=== PATIENT | male | born 1975 | race Caucasian/White ===

== ENCOUNTER 2021-08-16 23:01 | Inpatient (IN) | payer MEDICAID ==
[~2021-08-16] VITALS: Ht 177.8 cm; Wt 106.6 kg
[2021-08-16] MEDS ORDERED: DILTIAZEM HCL 50 MG IV ONE (23:18)
[2021-08-16] MEDS ORDERED: DILTIAZEM HCL 25 MG IV ONE (23:27)
[2021-08-16] MEDS ORDERED: DILTIAZEM HCL 50 MG IV IV ONE (23:30)
--- NOTE | 2021-08-16 23:30 | NUR ---
Cardizem 10mg given IVP
--- NOTE | 2021-08-16 23:30 | NUR ---
BIBRA FROM HOME. PT A/O X3, C/O PALPITATIONS STARTED AT 2200. PT HAS HX OF AFIB DENIES CP, SOB,NAUSEA AT THIS TIME.
--- NOTE | 2021-08-16 23:44 | NUR ---
GREEN CHAIN OFF BEARER AT PT'S BEDSIDE
[2021-08-17] VITALS (18 sets, daily range): BP systolic 123–163; BP diastolic 50–111
--- NOTE | 2021-08-17 | NUR ---
Deysi al in [facility] - 08/17/21 at 0005 by NAYELI Cardizem drip started at 5 mg/hr will cont. to monitor pt.
[2021-08-17 00:06] LABS: BASOPHILS # (AUTO) 0.1 K/uL (0.0-0.2); BASOPHILS % (AUTO) 0.8 % (0.0-2.0); EOSINOPHILS % (AUTO) 1.7 % (0.0-6.0); HEMATOCRIT 48 % (39-51); HEMOGLOBIN 16.9 g/dL (13.5-17.5); LYMPHOCYTES # (AUTO) 3.1 K/uL (0.8-4.8); LYMPHOCYTES % (AUTO) 40.2 % (20.0-44.0); MEAN CORPUSCULAR HGB CONC 35 g/dl (31.0-36.0); MEAN CORPUSCULAR VOLUME 89 fL (80-96); MONOCYTES # (AUTO) 0.4 K/uL (0.1-1.30); MONOCYTES % (AUTO) 5.2 % (2.0-12.0); NEUTROPHILS % (AUTO) 52.1 % (43.0-81.0); PLATELET COUNT (AUTO) 232 K/uL (150-450); RED BLOOD CELL COUNT(AUTO) 5.39 MIL/uL (4.5-6.0); WHITE BLOOD COUNT (AUTO) 7.7 K/uL (4.3-11.0)
--- NOTE | 2021-08-17 00:10 | NUR ---
Pt HR 170 cardizem increases to 10 mg/hr. will cont. to monitor pt
--- NOTE | 2021-08-17 00:10 | NUR ---
pt HR 177 Cardizem drip increased to 10mg/hr
--- NOTE | 2021-08-17 00:20 | NUR ---
pt hr 165-170 Cardizem drip increased to 15 mg/hr.
[2021-08-17 00:41] LABS: CARBON DIOXIDE 27 mmol/L (21-32); CHLORIDE 102 mmol/L (98-107); GLUCOSE 188 mg/dL (74-106); POTASSIUM 3.6 mmol/L (3.5-5.1); SODIUM SERUM 140 mmol/L (136-145); UREA NITROGEN, BLOOD 12 mg/dL (7-18)
[2021-08-17 00:46] LABS: ALANINE AMINOTRANSFERASE 68 U/L (12-78); ALKALINE PHOSPHATASE 45 U/L (46-116); ASPARTATE AMINOTRANSFERASE 43 U/L (15-37); BILIRUBIN,TOTAL 0.3 mg/dL (0.2-1.0); TOTAL PROTEIN, SERUM 7.8 g/dL (6.4-8.2)
--- NOTE | 2021-08-17 00:46 | NUR ---
COVID SWAB COLLECTED AND SENT TO LAB
--- NOTE | 2021-08-17 00:50 | NUR ---
PER DR. ESQUIVEL VERBAL ORDER, CANCEL TROPONIN DUE AT 0039. NOTIFIED LAB [facility]
--- NOTE | 2021-08-17 00:57 | NUR ---
MOVE SHEET SUBMITTED
[2021-08-17] MEDS ORDERED: Z GUARD REMEDY 4 OZ OINT TP PRN (01:00)
[2021-08-17] MEDS: ASPIRIN 81 MG TAB.CHEW PO SCH ×2 (01:00→08:07)
[2021-08-17] MEDS ORDERED: ZOLPIDEM TARTRATE 5 MG TABLET PO PRN (01:00)
[2021-08-17] MEDS ORDERED: MAG HYDROX/AL HYDROX/SIMETH 30 ML UDC PO PRN (01:00)
[2021-08-17] MEDS ORDERED: MAGNESIUM HYDROXIDE 30 ML UDC PO PRN (01:00)
[2021-08-17] MEDS ORDERED: ACETAMINOPHEN 325 MG TABLET PO PRN (01:00)
[2021-08-17] MEDS ORDERED: MORPHINE SULFATE INJ 2 MG/ML DISP.SYRIN IV PRN (01:00)
[2021-08-17] MEDS ORDERED: HYDROCODONE/APAP 5/325MG TABLET PO PRN (01:00)
[2021-08-17] MEDS ORDERED: ONDANSETRON HCL/PF 4 MG/2 ML VIAL IVP PRN (01:00)
--- NOTE | 2021-08-17 01:14 | NUR ---
PROVIDED PT WITH URINAL; PT NOT ABLE TO URINATE AT THIS TIME. WILL F/U AND COLLECTED URINE LATER.
--- NOTE | 2021-08-17 01:50 | NUR ---
URINE COLLECTED AND SENT TO LAB
--- NOTE | 2021-08-17 03:17 | NUR ---
RN NOTES RECEIVED REPORT FROM ER NURSE JUAN
--- NOTE | 2021-08-17 03:22 | NUR ---
REPORT GIVEN TO BENJAMIN BODY ART TECHNICIAN
[2021-08-17] MEDS ORDERED: ENOXAPARIN SODIUM 40 MG/0.4 ML DISP.SYRIN SQ SCH (04:00)
--- NOTE | 2021-08-17 04:10 | NUR ---
PT TRANSPORTED VIA ACLS PROTOCOL IN STABLE CONDITION
--- NOTE | 2021-08-17 04:15 | NUR ---
RN CLOSING NOTES RECEIVED A 46 YEAR OLD MALE FROM ER. PATIENT ALERT AND ORIENTED X 4. RESPIRATORY EVEN AND UNLABORED, NO SOB NOTED, NOT IN DISTRESS, NO FACIAL GRIMACING NOTED. ON ROOM AIR. SKIN WARM AND DRY. NOTED WITH IV ACCESS AT LAC #18G AND RIGHT ARM #20G PATENT, INTACT, FLUSHED WITH NS, NO INFILTRATION NOTED. PATIENT WITH CARDIZEM DRIP @ 15MG/HR. V/S TAKEN AND RECORDED, COMPLETE BODY ASSESSMENT DONE. ALL SAFETY PRECAUTION PROVIDED. BED IN LOWEST POSITION, LOCKED AND BED ALARM ARMED. CALL LIGHT WITHIN REACH. Addendum: 08/17/21 at 0710 by BENSON VALENCIA RN RN OPENING NOTES
[2021-08-17] MEDS: DILTIAZEM HCL IV 125 MG in IV NS 0.9% 100 ML IV PRN ×2 (04:39→12:24)
[2021-08-17] MEDS ORDERED: DILTIAZEM HCL 50 MG IV ONE (04:42)
[2021-08-17] MEDS ORDERED: DILTIAZEM HCL 25 MG IV ONE (04:43)
--- NOTE | 2021-08-17 05:07 | NUR ---
RN NOTED PATIENT NOTED WITH BP-163/111, DENIES DIZZINESS OR HEADACHE. DR. ESQUIVEL MADE AWARE WITH NEW ORDER HYDRALAZINE 25MG PO Q6HRS PRN FOR SBP ABOVE 160, NOTED AND CARRIED OUT. CONTINUE TO MONITOR.
[2021-08-17] MEDS ORDERED: hydrALAZINE HCL 25 MG TABLET PO PRN (05:30)
--- NOTE | 2021-08-17 05:30 | NUR ---
RN NOTES BP RECHECKED OBTAINED 144/ 76. CONTINUE TO MONITOR
--- NOTE | 2021-08-17 07:11 | NUR ---
RN CLOSING NOTES NO SIGNIFICANT CHANGES THROUGH OUT THE SHIFT. RESPIRATORY EVEN AND UNLABORED, NO SOB NOTED, NOT IN DISTRESS, NO FACIAL GRIMACING NOTED. ON ROOM AIR. SKIN WARM AND DRY. PATIENT WITH CARDIZEM DRIP @ 15MG/HR. ALL DUE MEDS GIVEN ORDERED. ALL SAFETY PRECAUTION PROVIDED. BED IN LOWEST POSITION, LOCKED AND BED ALARM ARMED. CALL LIGHT WITHIN REACH.
[2021-08-17] MEDS ORDERED: PANTOPRAZOLE 40 MG TABLET.DR PO SCH (07:30)
--- NOTE | 2021-08-17 07:58 | NUR ---
RN NOTE PT RESTING IN BED, NOT IN DISTRESS. NO COMPLAINTS OF CHEST PAIN. TELE MONITOR READING AFIB. IV ACCESS ON LAC G18 AND RFA G20. ON CARDIZEM DRIP AT A RATE OF 15MG/HR. WILL CONTINUE TO MONITOR,
[2021-08-17] MEDS ORDERED: TADA20TA43 PO (08:07)
[2021-08-17] MEDS: METOPROLOL TARTRATE 50 MG TABLET PO SCH ×2 (14:59→18:23)
[2021-08-17] MEDS ORDERED: ENOXAPARIN SODIUM 100 MG/ML DISP.SYRIN SQ SCH (17:00)
--- NOTE | 2021-08-17 19:22 | NUR ---
RN NOTE PT LEFT UNIT AMA AROUND 1909. IN STABLE CONDITION. AMBULATORY. MD MESA MADE AWARE, AMA FORM AND BELONGINGS LIST SIGNED. Addendum: 08/17/21 at 1929 by TESFAYE KABA RN EXPLAINED TO PT THE RISK OF DOING AMA, PT VERBALIZED UNDERSTANDING AND STILL INSISTED TO PROCEED WITH AMA.
== END 2021-08-17 21:42 | disposition left against medical advice (07) | DRG 201 ==
LOC: ER 23:10 → ICU 08-17 03:29
PROVIDERS: ADMIT Student in an Organized Health Care Education/Training Program; ATTEND Nurse Practitioner Acute Care
DX: I48.91 Unspecified atrial fibrillation (principal); I21.A1 Myocardial infarction type 2; D68.59 Other primary thrombophilia; I10 Essential (primary) hypertension; E66.01 Morbid (severe) obesity due to excess calories
CPT/HCPCS: 36415; 71045-TC; 80048-TC; 80076-TC; 83880; 84484-TC; 85025-TC; 85730-TC; 87081-TC; 93307-TC; C9803; G0378; J1650; J3490; J7030

== ENCOUNTER 2021-11-10 02:16 | Emergency (ER) | payer MEDICAID ==
[~2021-11-10] VITALS: Ht 172.7 cm; Wt 95.3 kg
[~2021-11-10 02:16] MED LIST: TADA20TA43 PO
--- NOTE | 2021-11-10 02:23 | NUR ---
[id number] FROM HOME C/O CP & PALPITATIONS XFEW MINS. PATIENT ALERT AND ORIENTED X3. AMBULATORY WITH NON LABORED BREATHING IN BED 09 ON MONITOR LAC18G TELEPHONE LINEWORKER. AWAITING MD LANGFORD.
--- NOTE | 2021-11-10 02:25 | NUR ---
EMT @ BEDSIDE FOR EKG
[2021-11-10] MEDS ORDERED: DILTIAZEM HCL 50 MG IV IV ONE (02:30)
--- NOTE | 2021-11-10 02:30 | NUR ---
URINE SPECIMEN COLLECTED AND SENT TO LAB.
[2021-11-10] MEDS ORDERED: DILTIAZEM HCL 25 MG IV ONE (02:35)
[2021-11-10 02:58] LABS: BASOPHILS # (AUTO) 0.1 K/uL (0.0-0.2); BASOPHILS % (AUTO) 0.9 % (0.0-2.0); EOSINOPHILS % (AUTO) 2.6 % (0.0-6.0); HEMATOCRIT 46 % (39-51); HEMOGLOBIN 15.4 g/dL (13.5-17.5); LYMPHOCYTES # (AUTO) 4.4 K/uL (0.8-4.8); LYMPHOCYTES % (AUTO) 44.4 % (20.0-44.0); MEAN CORPUSCULAR HGB CONC 34 g/dl (31.0-36.0); MEAN CORPUSCULAR VOLUME 86 fL (80-96); MONOCYTES # (AUTO) 0.6 K/uL (0.1-1.30); MONOCYTES % (AUTO) 6.6 % (2.0-12.0); NEUTROPHILS # (AUTO) 4.5 K/uL (1.8-8.9); NEUTROPHILS % (AUTO) 45.5 % (43.0-81.0); PLATELET COUNT (AUTO) 215 K/uL (150-450); RED BLOOD CELL COUNT(AUTO) 5.29 MIL/uL (4.5-6.0); WHITE BLOOD COUNT (AUTO) 9.8 K/uL (4.3-11.0)
[2021-11-10 03:06] LABS: CALCIUM, SERUM 8.7 mg/dL (8.5-10.1); CARBON DIOXIDE 25 mmol/L (21-32); CHLORIDE 104 mmol/L (98-107); GLUCOSE 148 mg/dL (74-106); POTASSIUM 3.4 mmol/L (3.5-5.1); SODIUM SERUM 138 mmol/L (136-145); UREA NITROGEN, BLOOD 16 mg/dL (7-18)
[2021-11-10] MEDS ORDERED: METO-358 PO (04:48)
--- NOTE | 2021-11-10 05:15 | NUR ---
pt discharged in satble condition
[2021-11-10 05:16] VITALS: BP 133/97
== END 2021-11-10 05:16 | disposition home or self-care (01) ==
LOC: ER 02:19
DX: I48.20 Chronic atrial fibrillation, unspecified (principal); I10 Essential (primary) hypertension; Z95.5 Presence of coronary angioplasty implant and graft; Z60.2 Problems related to living alone; Z79.899 Other long term (current) drug therapy
CPT/HCPCS: 36415; 71045; 80048; 83880; 84484 ×2; 85025; 93005 ×2; 96374; 99285; J3490

== ENCOUNTER 2024-04-14 03:14 | Emergency (ER) | payer MEDICAID ==
[~2024-04-14] VITALS: Ht 175.3 cm; Wt 90.7 kg
[~2024-04-14 03:14] MED LIST changes: +METO-358 PO
[2024-04-14] MEDS ORDERED: DILTIAZEM HCL 25 MG IV ONE (03:23)
[2024-04-14] MEDS: DILTIAZEM HCL 50 MG IV IV ONE (03:29)
[2024-04-14 03:57] LABS: BASOPHILS % (AUTO) 0.5 % (0.0-2.0); EOSINOPHILS # (AUTO) 0.1 K/uL (0.0-0.7); EOSINOPHILS % (AUTO) 2.2 % (0.0-6.0); HEMATOCRIT 45 % (39-51); HEMOGLOBIN 15.4 g/dL (13.5-17.5); LYMPHOCYTES # (AUTO) 2.6 K/uL (0.8-4.8); LYMPHOCYTES % (AUTO) 41.9 % (20.0-44.0); MEAN CORPUSCULAR HEMOGLOBIN 30 PG (26.0-33.0); MEAN CORPUSCULAR HGB CONC 35 g/dl (31.0-36.0); MEAN CORPUSCULAR VOLUME 86 fL (80-96); MONOCYTES # (AUTO) 0.3 K/uL (0.1-1.30); NEUTROPHILS # (AUTO) 3.2 K/uL (1.8-8.9); NEUTROPHILS % (AUTO) 50.4 % (43.0-81.0); PLATELET COUNT (AUTO) 180 K/uL (150-450); RED BLOOD CELL COUNT(AUTO) 5.15 MIL/uL (4.5-6.0); WHITE BLOOD COUNT (AUTO) 6.3 K/uL (4.3-11.0)
[2024-04-14 04:45] LABS: ALANINE AMINOTRANSFERASE 40 U/L (12-78); ALBUMIN 3.9 g/dL (3.4-5.0); ALKALINE PHOSPHATASE 35 U/L (46-116); ASPARTATE AMINOTRANSFERASE 16 U/L (15-37); BILIRUBIN,DIRECT 0.1 mg/dL (0.0-0.2); BILIRUBIN,TOTAL 0.3 mg/dL (0.2-1.0); CALCIUM, SERUM 8.6 mg/dL (8.5-10.1); CARBON DIOXIDE 26 mmol/L (21-32); CHLORIDE 108 mmol/L (98-107); CREATININE 0.9 mg/dL (0.6-1.3); GLUCOSE 170 mg/dL (74-106); NT-PRO BNP 79 pg/mL (0-125); POTASSIUM 3.3 mmol/L (3.5-5.1); SODIUM SERUM 145 mmol/L (136-145); TOTAL PROTEIN, SERUM 7.2 g/dL (6.4-8.2); UREA NITROGEN, BLOOD 14 mg/dL (7-18)
[2024-04-14 05:11] VITALS: BP 133/79; TEMP 98.1; O2SAT 99
== END 2024-04-14 05:07 | disposition home or self-care (01) ==
LOC: ER 03:27
DX: I48.20 Chronic atrial fibrillation, unspecified (principal); I10 Essential (primary) hypertension; I25.2 Old myocardial infarction; Z79.899 Other long term (current) drug therapy; Z95.5 Presence of coronary angioplasty implant and graft; Z60.2 Problems related to living alone
CPT/HCPCS: 99285; 96374; 71045; 93005; 85025; 80048; 80076; 36415; 84484; 83880; J3490

== ENCOUNTER 2024-07-10 11:29 | Inpatient (IN) | payer MEDICAID ==
[~2024-07-10] VITALS: Ht 175.3 cm; Wt 103.4 kg
[2024-07-10 11:49] LABS: BASOPHILS # (AUTO) 0.1 K/uL (0.0-0.2); BASOPHILS % (AUTO) 0.7 % (0.0-2.0); EOSINOPHILS # (AUTO) 0.2 K/uL (0.0-0.7); EOSINOPHILS % (AUTO) 2.2 % (0.0-6.0); HEMATOCRIT 47 % (39-51); LYMPHOCYTES # (AUTO) 1.5 K/uL (0.8-4.8); LYMPHOCYTES % (AUTO) 19.9 % (20.0-44.0); MEAN CORPUSCULAR HEMOGLOBIN 30 PG (26.0-33.0); MEAN CORPUSCULAR HGB CONC 35 g/dl (31.0-36.0); MEAN CORPUSCULAR VOLUME 86 fL (80-96); MONOCYTES # (AUTO) 0.6 K/uL (0.1-1.30); MONOCYTES % (AUTO) 7.3 % (2.0-12.0); NEUTROPHILS # (AUTO) 5.3 K/uL (1.8-8.9); NEUTROPHILS % (AUTO) 69.9 % (43.0-81.0); PLATELET COUNT (AUTO) 174 K/uL (150-450); RED BLOOD CELL COUNT(AUTO) 5.44 MIL/uL (4.5-6.0); RED CELL DISTRIBUTION WIDTH 13.4 % (11.5-15.0); WHITE BLOOD COUNT (AUTO) 7.6 K/uL (4.3-11.0)
[2024-07-10] MEDS: DILTIAZEM HCL 50 MG IV IV ONE ×2 (11:50→12:06)
[2024-07-10] MEDS ORDERED: DILTIAZEM HCL 25 MG IV ONE ×2 (11:50→12:04)
[2024-07-10] MEDS: DILTIAZEM HCL IV 125 MG in IV NS 0.9% 100 ML IV PRN (12:00)
[2024-07-10 12:01] LABS: CALCIUM, SERUM 8.6 mg/dL (8.5-10.1); CARBON DIOXIDE 23 mmol/L (21-32); CHLORIDE 101 mmol/L (98-107); CREATININE 1.1 mg/dL (0.6-1.3); GLUCOSE 171 mg/dL (74-106); POTASSIUM 3.3 mmol/L (3.5-5.1); SODIUM SERUM 136 mmol/L (136-145); UREA NITROGEN, BLOOD 12 mg/dL (7-18)
[2024-07-10] MEDS ORDERED: ASPI-1169 PO (12:31)
[2024-07-10] MEDS ORDERED: SACU1TAB4 MT (12:31)
[2024-07-10] MEDS ORDERED: METO-358 PO (12:31)
[2024-07-10] MEDS ORDERED: EVOL140P3 SQ (12:31)
[2024-07-10] MEDS ORDERED: CEFTRIAXONE 1GM BAG (ER ONLY) 50 ML IV ONE (13:19)
[2024-07-10] MEDS: CEFTRIAXONE 1GM BAG (ER ONLY) 1 GM/50 ML PIGGYBACK IV ONE (13:26)
[2024-07-10] MEDS ORDERED: METOPROLOL TARTRATE 25 MG TABLET PO SCH (13:30)
[2024-07-10] MEDS ORDERED: MORPHINE SULFATE INJ 2 MG/ML DISP.SYRIN IV PRN (13:30)
[2024-07-10] MEDS ORDERED: ONDANSETRON HCL/PF 4 MG/2 ML VIAL IVP PRN (13:30)
[2024-07-10] MEDS ORDERED: hydrALAZINE HCL IV 20 MG VIAL IV PRN (13:30)
[2024-07-10] MEDS ORDERED: ACETAMINOPHEN 325 MG TABLET PO PRN (13:30)
[2024-07-10] MEDS ORDERED: ALBUTEROL FS 2.5 MG/0.5 ML VIAL.NEB NEB PRN (14:00)
[2024-07-10] MEDS: AZITHROMYCIN 500 MG in IV D5W 250 ML IV ONE (14:57)
[2024-07-10] MEDS ORDERED: AMIODARONE 900 MG in IV D5W 482 ML IV PRN (15:00)
[2024-07-10] MEDS: AMIODARONE 150 MG in IV D5W 100 ML IV ONE (15:38)
[2024-07-10] MEDS: AMIODARONE 450 MG in IV D5W 241 ML IV PRN (16:18)
[2024-07-10 19:11] VITALS: O2SAT 99
[2024-07-10] MEDS ORDERED: SACU1TAB7 MT (20:01)
[2024-07-10] MEDS ORDERED: TADA5TAB2 (20:01)
[2024-07-10 20:10] VITALS: BP 117/79; TEMP 98; O2SAT 97
[2024-07-10 21:00] VITALS: BP 111/78; O2SAT 97
[2024-07-10] MEDS ORDERED: AMIODARONE 150 MG/3 ML VIAL IV ONE (22:05)
[2024-07-10] MEDS: DOXYCYCLINE 100 MG in IV D5W 100 ML IV SCH (22:27)
[2024-07-10] MEDS: ENOXAPARIN SODIUM 100 MG/ML DISP.SYRIN SQ SCH (22:28)
[2024-07-11] VITALS: BP 117/79; TEMP 98
[2024-07-11 07:26] LABS: BASOPHILS % (AUTO) 0.3 % (0.0-2.0); EOSINOPHILS # (AUTO) 0.2 K/uL (0.0-0.7); EOSINOPHILS % (AUTO) 2.6 % (0.0-6.0); HEMATOCRIT 42 % (39-51); HEMOGLOBIN 14.3 g/dL (13.5-17.5); LYMPHOCYTES # (AUTO) 1.8 K/uL (0.8-4.8); LYMPHOCYTES % (AUTO) 25.8 % (20.0-44.0); MEAN CORPUSCULAR HEMOGLOBIN 29 PG (26.0-33.0); MEAN CORPUSCULAR HGB CONC 35 g/dl (31.0-36.0); MEAN CORPUSCULAR VOLUME 85 fL (80-96); MONOCYTES # (AUTO) 0.5 K/uL (0.1-1.30); MONOCYTES % (AUTO) 7.2 % (2.0-12.0); NEUTROPHILS # (AUTO) 4.4 K/uL (1.8-8.9); NEUTROPHILS % (AUTO) 64.1 % (43.0-81.0); PLATELET COUNT (AUTO) 180 K/uL (150-450); RED BLOOD CELL COUNT(AUTO) 4.86 MIL/uL (4.5-6.0); RED CELL DISTRIBUTION WIDTH 13.8 % (11.5-15.0); WHITE BLOOD COUNT (AUTO) 6.9 K/uL (4.3-11.0)
[2024-07-11 07:40] LABS: ALBUMIN 3.2 g/dL (3.4-5.0); BILIRUBIN,TOTAL 0.5 mg/dL (0.2-1.0); CALCIUM, SERUM 8.5 mg/dL (8.5-10.1); CREATININE 0.7 mg/dL (0.6-1.3); PHOSPHORUS 3.1 mg/dL (2.5-4.9); POTASSIUM 3.2 mmol/L (3.5-5.1); TOTAL PROTEIN, SERUM 6.9 g/dL (6.4-8.2)
[2024-07-11] MEDS ORDERED: CEFTRIAXONE 1 G in IV D5W 50 ML IV SCH (09:00)
[2024-07-11] MEDS ORDERED: SACUBITRIL/VALSARTAN 49/51MG TABLET PO SCH (09:00)
[2024-07-11] MEDS ORDERED: METOPROLOL SUCCINATE 50 MG TAB.SR.24H PO SCH (09:00)
[2024-07-12] MEDS ORDERED: ASPIRIN 81 MG TAB.CHEW PO SCH (09:00)
== END 2024-07-11 07:45 | disposition left against medical advice (07) | DRG 201 ==
LOC: ER 11:34 → ICU 17:48 → TELE1 21:32 → TELE-TD 21:50
PROVIDERS: ADMIT Internal Medicine; ATTEND Internal Medicine
DX: I48.91 Unspecified atrial fibrillation (principal); J18.9 Pneumonia, unspecified organism; E87.6 Hypokalemia; I10 Essential (primary) hypertension; I25.10 Atherosclerotic heart disease of native coronary artery without angina pectoris; Z53.29 Procedure and treatment not carried out because of patient's decision for other reasons; Z95.5 Presence of coronary angioplasty implant and graft; Z20.822 Contact with and (suspected) exposure to COVID-19
CPT/HCPCS: 36415; 71045-TC; 80048-TC; 80053-TC; 83605-TC; 83735-TC; 84100-TC; 84484-TC; 85025-TC; 87040-TC; 87081-TC; 93307-TC; A4223; G0378; J0282; J0456; J0696; J1650; J3490; J7030; J7060